=== PATIENT | male | born 1930 | race Caucasian/White ===

== ENCOUNTER 2018-01-22 12:32 | Outpatient (CLI) | payer MEDICARE ==
--- NOTE | 2018-01-23 09:48 | PET ---
RADIONUCLIDE PET SCAN FOR DEMENTIA: Date: 01/22/18 HISTORY: Dementia. Late onset. FINDINGS: Physiologic uptake of radiotracer is present throughout each cerebral cortex. Diffuse cortical atroph y is apparent. Decreased uptake of the left basal ganglia is consistent with an old lacunar infarct. Uptake is symmetric. IMPRESSION: Diffuse atrophy without focal metabolism defect for specific neurologic disease. Exam was read in conjunction with Dr. Durham. POS: [facility]
== END 2018-01-22 12:33 | disposition home or self-care (01) ==
LOC: PET 12:32
PROVIDERS: ATTEND Psychiatry & Neurology Neurology
DX: G30.1 Alzheimer's disease with late onset (principal); G31.9 Degenerative disease of nervous system, unspecified
CPT/HCPCS: 78608; A9552